=== PATIENT | male | born 1980 | race Hispanic/Latino ===

== ENCOUNTER 2024-06-05 15:24 | Inpatient (IN) | payer SELFPAY ==
[~2024-06-05 15:24] MED LIST: Iopamidol-370 76% 500 ML MDV (1 ML CHARGE) ONE
[2024-06-05] MEDS ORDERED: fentaNYL 50 mcg/mL 1 mL Vial ONE (15:30)
[2024-06-05] MEDS ORDERED: Rocuronium Bromide 10 MG/ML (10ML VIAL) ONE (15:32)
[2024-06-05] MEDS ORDERED: Dextrose 5% in Water 250 ML BAG (BBRAUN) ONE (15:32)
[2024-06-05] MEDS ORDERED: EPINEPHrine 1 MG/10 ML Abboject SYRINGE ONE (15:32)
[2024-06-05] MEDS ORDERED: Amiodarone 150 MG/3 ML VIAL ONE ×2 (15:32→16:25)
[2024-06-05] MEDS ORDERED: Amiodarone 450 MG/9 ML VIAL ONE (15:32)
[2024-06-05] MEDS ORDERED: Etomidate 40 MG (20 mL) VIAL ONE (15:32)
[2024-06-05 15:41] LABS: Hematocrit 41.4 % (42.0-52.0); Hemoglobin 14.4 g/dL (14.0-18.0); Mean Corpuscular HGB CONC 34.8 g/dL (32.0-36.0); Mean Corpuscular Hemoglobin 31.6 pg (27.0-31.0); Mean Corpuscular Volume 90.8 fL (78.0-98.0); Platelet Count 156 10x3/uL (130-400); RBC Distribution Width 11.9 % (11.5-14.5); Red Blood Cell (RBC) Count 4.56 mill/uL (4.70-6.10)
[2024-06-05] MEDS ORDERED: Fentanyl CADD 100 ML IV SCH (15:45)
[2024-06-05 15:47] LABS: Analyzer IN Cardio ER; Base Excess (BEa) -9.9 mEq/L (-2.0 to +3.0); CO2 Tension 35.3 mmHg (35.0-45.0); Calcium, Ionized (arterial) 1.11 mmol/L (1.12-1.30); Carboxyhemoglobin (COHb) 0.9 gm% (0.0-3.0); Hematocrit-ABG 43 % (42.0-52.0); Hemoglobin (Hb) 14.5 g/dL (14.0-18.0); O2 Tension (PaO2), arterial 136.8 mmHg (80.0-100.0); pH, Arterial 7.274 (7.35-7.45)
[2024-06-05 15:49] LABS: Potassium - ABG Lab 2.69 mmol/L (3.70-5.30); Puncture Site Right Radial artery
[2024-06-05 15:50] LABS: ALV-art Gradient 527.075 mmHg (0-20)
[2024-06-05 15:53] LABS: Acetaminophen Less than 10 mcg/mL (Less than 10); Alcohol Less than 10.0 mg/dL (Less than 10); Salicylate Less than 8.0 mg/dL (Less than 8.0)
[2024-06-05 15:56] LABS: INR-International Normal Ratio 1.1
[2024-06-05 15:59] LABS: Troponin I 0.152 ng/mL (< 0.028)
[2024-06-05 16:02] LABS: ALT (SGPT) 29 U/L (8-55); AST (SGOT) 41 U/L (5-34); Albumin 3.5 g/dL (3.5-5.0); Alkaline Phosphatase 89 U/L (40-110); Anion Gap 16 mmol/L (10-20); BUN (Urea Nitrogen) 16 mg/dL (8.9-20.6); Bilirubin, Total 0.4 mg/dL (0.2-1.2); Calc. Creatinine Clearance 0 mL/min (70-130); Calcium 8.2 mg/dL (7.8-10.44); Carbon Dioxide 17 mmol/L (22-29); Chloride 108 mmol/L (98-107); Estimated GFR 81; Globulin 2.7 g/dL (2.4-3.5); Glucose 207 mg/dL (70-105); Potassium 2.5 mmol/L (3.5-5.1); Protein, Total 6.2 g/dL (6.0-8.3); Sodium 138 mmol/L (136-145)
[2024-06-05 16:04] LABS: Amphetamine Not Detected (NotDetected); Barbiturates Screen Not Detected (NotDetected); Benzodiazepine Screen Not Detected (NotDetected); Cocaine Metabolite Screen Not Detected (NotDetected); Methadone Not Detected (NotDetected); Methamphetamine Not Detected (NotDetected); Opiate Screen Not Detected (NotDetected); Oxycodone Screen Not Detected (NotDetected); Phencyclidine (PCP) Not Detected (NotDetected); THC/Cannabinoid Screen Not Detected (NotDetected); Tricyclic Screen Not Detected (NotDetected)
[2024-06-05 16:17] LABS: Magnesium 1.9 mg/dL (1.6-2.6)
[2024-06-05 16:18] LABS: Band 6 % (5-11); Burr Cells SLIGHT = 2-5 cells HPF (0-1); Eosinophils 4 % (0-10); Lymphocytes 50 % (21-51); Metamyelocyte 3 % (0-0); Monocytes 3 % (0-10); Myelocyte 1 % (0-0); Neutrophil 24 % (42-75); Nucleated RBC (Manual Ct) 1 % (0); Ovalocytes SLIGHT = 2-5 cells HPF (0-1); Platelet Adequacy Comment Platelets Normal; Polychromasia SLIGHT = 2-3 cells HPF (0-2); Reactive Lymphocytes 10 % (0-10)
[2024-06-05] MEDS ORDERED: Magnesium 2 GM/50 ML BAG (IN WATER) ONE (16:29)
[2024-06-05] MEDS ORDERED: Propofol 1,000 MG/100 ML VIAL IV ONE (16:31)
[2024-06-05] MEDS ORDERED: NOREPINEPHRINE 8 MG/250 ML-D5W 250 ML ONE (16:54)
[2024-06-05] MEDS ORDERED: Electrolyte Replacement Protocol FS SCH (17:17)
[2024-06-05] MEDS ORDERED: DISCONTINUE PREVIOUS NARCOTIC PAIN MEDICATIONS AND BENZODIAZEPINES FS SCH (17:30)
[2024-06-05] MEDS ORDERED: Propofol BOLUS 1,000 MG/100 ML VIAL IV PRN (17:30)
[2024-06-05] MEDS ORDERED: NOREPINEPHRINE 8 MG/250 ML-D5W 250 ML IVPB SCH (17:30)
[2024-06-05] MEDS ORDERED: Fentanyl BOLUS 250 ML IVPB PRN (17:30)
[2024-06-05] MEDS ORDERED: Morphine 2 MG/ML VIAL SLOW IVP PRN (17:30)
[2024-06-05] MEDS ORDERED: Ipratropium/Albuterol 3 ML NEB NEB PRN (19:40)
[2024-06-05] MEDS ORDERED: Acetaminophen 325 MG (10.15 ML) UDCUP PO PRN (19:40)
[2024-06-05] MEDS ORDERED: Famotidine/PF 20 mg/2ml Vial SLOW IVP SCH (21:00)
[2024-06-05] MEDS ORDERED: Famotidine 40 MG/5 ML Oral Suspension PER TUBE SCH (21:00)
[2024-06-05] MEDS: Sodium Chloride 0.9% 1,000 ML IV SCH (21:09)
[2024-06-05] MEDS: Sodium Chloride 0.9% 500 ML IV SCH (21:15)
[2024-06-05] MEDS: Lorazepam 2 MG/ML VIAL SLOW IVP PRN (21:16)
[2024-06-05] MEDS: Potassium Chloride 40 MEQ in Premix 1 BAG IVPB SCH (21:56)
[2024-06-05] MEDS: Ventilator Sedation Protocol 1 EACH FS ONE (21:57)
[2024-06-05] MEDS ORDERED: Insulin Regular, Human 100 UNIT/ML 10 ML VIAL SC PRN ×2 (22:02→22:03)
[2024-06-05 22:15] LABS: Anion Gap 15 mmol/L (10-20); BUN (Urea Nitrogen) 17 mg/dL (8.9-20.6); Calc. Creatinine Clearance 0 mL/min (70-130); Carbon Dioxide 19 mmol/L (22-29); Chloride 108 mmol/L (98-107); Estimated GFR 68; Glucose 168 mg/dL (70-105); Potassium 3.7 mmol/L (3.5-5.1); Sodium 138 mmol/L (136-145)
[2024-06-05] MEDS: Folic Acid 1 MG TAB PER TUBE SCH (22:30)
[2024-06-05] MEDS: Thiamine HCl 200 MG/2 ML VIAL SLOW IVP SCH (22:30)
[2024-06-05] MEDS: Multivit, Therapeutic 1 TAB PER TUBE SCH (22:30)
[2024-06-05] MEDS: Potassium Chloride 20 MEQ in Premix 1 BAG IVPB SCH (22:48)
[2024-06-05] MEDS: Aspirin Chewable 81 MG TAB PER TUBE SCH (22:48)
[2024-06-05] MEDS: Potassium Bicarbonate/Cit Ac 20 MEQ TAB PER TUBE SCH (23:58)
[2024-06-06] MEDS: Fentanyl CADD 100 ML IV SCH (00:15)
[2024-06-06] MEDS: Amiodarone 450 MG in Dextrose 5% in Water 250 ML IVPB SCH (01:20)
[2024-06-06] MEDS: Propofol 1,000 MG/100 ML VIAL IV PRN (01:25)
[2024-06-06 02:24] LABS: Bacteria/HPF None Seen HPF (None Seen); Bilirubin Negative (Negative); Blood, Urine Trace (Negative); CAUTI Indications for Culture Dysuria,urgency,freq; Clarity Clear (Clear); Glucose, Urine (Dipstick) 150 mg/dL (Negative); Ketone, Urine Negative (Negative); Leukocyte Negative Leu/uL (Negative); Nitrite Negative (Negative); Protein, Urine (Dipstick) 200 mg/dL (Neg-Trace); RBC/HPF 0-3 HPF (0-3); Specific Gravity, Urine 1.007 (1.002-1.036); Squamous Epithelial None Seen HPF (0-3); Urobilinogen Normal mg/dL (Less than 2); pH, Urine 7.5 (5.0-9.0)
[2024-06-06 02:25] LABS: Urine Culture Reflex No No
[2024-06-06 04:01] LABS: #Basophils 0.07 10x3/uL (0.0-0.2); %Basophils 0.6 % (0.0-1.0); %Eosinophils 1.5 % (0.0-10.0); %Lymphocytes 16.8 % (21.0-51.0); %Monocytes 11.1 % (0.0-10.0); %Neutrophils 69.6 % (42.0-75.0); Mean Corpuscular Hemoglobin 31.5 pg (27.0-31.0); Mean Corpuscular Volume 90.1 fL (78.0-98.0); Mean Platelet Volume 10.2 fL (7.4-10.4); Platelet Count 153 10x3/uL (130-400); RBC Distribution Width 12.2 % (11.5-14.5); Red Blood Cell (RBC) Count 4.44 mill/uL (4.70-6.10)
[2024-06-06 04:25] LABS: Lactic Acid 1.51 mmol/L (0.5-2.2)
[2024-06-06 04:27] LABS: Hemoglobin A1c 6.5 % (4.0-6.0)
[2024-06-06 04:36] LABS: Troponin I 18.751 ng/mL (< 0.028)
[2024-06-06 05:01] LABS: ALT (SGPT) 33 U/L (8-55); AST (SGOT) 99 U/L (5-34); Albumin 3.1 g/dL (3.5-5.0); Alkaline Phosphatase 64 U/L (40-110); Anion Gap 12 mmol/L (10-20); BUN (Urea Nitrogen) 18 mg/dL (8.9-20.6); Bilirubin, Total 1.3 mg/dL (0.2-1.2); Calc. Creatinine Clearance 120 mL/min (70-130); Calcium 7.9 mg/dL (7.8-10.44); Carbon Dioxide 18 mmol/L (22-29); Chloride 110 mmol/L (98-107); Estimated GFR 88; Globulin 2.7 g/dL (2.4-3.5); Glucose 136 mg/dL (70-105); Protein, Total 5.8 g/dL (6.0-8.3); Sodium 136 mmol/L (136-145)
[2024-06-06 07:28] LABS: Actual Bicarbonate (HCO3a) 18.8 mEq/L (22-28); Base Excess (BEa) -4.3 mEq/L (-2.0 to +3.0); CO2 Tension 29.4 mmHg (35.0-45.0); Calcium, Ionized (arterial) 1.11 mmol/L (1.12-1.30); Carboxyhemoglobin (COHb) 0.8 gm% (0.0-3.0); Hematocrit-ABG 41 % (42.0-52.0); Hemoglobin (Hb) 14.1 g/dL (14.0-18.0); O2 Tension (PaO2), arterial 92.1 mmHg (80.0-100.0); Potassium - ABG Lab 3.83 mmol/L (3.70-5.30); pH, Arterial 7.423 (7.35-7.45)
[2024-06-06 07:34] LABS: Puncture Site Right Radial artery
[2024-06-06] MEDS: Enoxaparin 40 MG (0.4 mL) SYRINGE SC SCH (08:13)
[2024-06-06] MEDS ORDERED: DC Sedation Protocol FS SCH (08:13)
[2024-06-06] MEDS: Pantoprazole 40 MG VIAL IVP SCH (08:14)
[2024-06-06] MEDS: Potassium Phosphate 15 MMOL in Sodium Chloride 0.9% 100 ML IVPB SCH (08:50)
[2024-06-06] MEDS: Ampicillin/Sulbactam 3 GM in Sodium Chloride 0.9% 100 ML IVPB SCH ×2 (08:55→14:29)
[2024-06-06] MEDS: Multivit, Therapeutic 1 TAB PO SCH (21:44)
[2024-06-06] MEDS: Folic Acid 1 MG TAB PO SCH (21:44)
[2024-06-06] MEDS: Aspirin Chewable 81 MG TAB PO SCH (21:45)
[2024-06-06] MEDS: Nicotine 7 MG PATCH TD SCH (23:48)
[2024-06-07 04:35] LABS: #Basophils 0.03 10x3/uL (0.0-0.2); %Basophils 0.3 % (0.0-1.0); %Eosinophils 2.4 % (0.0-10.0); %Lymphocytes 11.7 % (21.0-51.0); %Monocytes 9.3 % (0.0-10.0); %Neutrophils 75.6 % (42.0-75.0); Hematocrit 37.1 % (42.0-52.0); Hemoglobin 12.6 g/dL (14.0-18.0); Mean Corpuscular Hemoglobin 31.7 pg (27.0-31.0); Mean Corpuscular Volume 93.2 fL (78.0-98.0); Mean Platelet Volume 10.1 fL (7.4-10.4); Platelet Count 94 10x3/uL (130-400); RBC Distribution Width 12.6 % (11.5-14.5); Red Blood Cell (RBC) Count 3.98 mill/uL (4.70-6.10)
[2024-06-07 04:46] LABS: ALT (SGPT) 30 U/L (8-55); AST (SGOT) 88 U/L (5-34); Albumin 3.1 g/dL (3.5-5.0); Alkaline Phosphatase 58 U/L (40-110); Anion Gap 11 mmol/L (10-20); BUN (Urea Nitrogen) 16 mg/dL (8.9-20.6); Bilirubin, Total 1.5 mg/dL (0.2-1.2); Calc. Creatinine Clearance 154 mL/min (70-130); Calcium 8.1 mg/dL (7.8-10.44); Carbon Dioxide 18 mmol/L (22-29); Chloride 110 mmol/L (98-107); Estimated GFR 111; Globulin 2.8 g/dL (2.4-3.5); Glucose 104 mg/dL (70-105); Magnesium 1.5 mg/dL (1.6-2.6); Potassium 3.6 mmol/L (3.5-5.1); Protein, Total 5.9 g/dL (6.0-8.3); Sodium 135 mmol/L (136-145)
[2024-06-07] MEDS: Magnesium 2 GM/50 ML(in water) 2 GM in Premix 1 BAG IVPB SCH (07:23)
[2024-06-07] MEDS: PHOS-NAK 1 PKT PACK PO SCH ×2 (07:23→16:04)
[2024-06-07 07:44] VITALS: BMI 34.3
[2024-06-07] MEDS: Acetaminophen 325 MG TAB PO PRN (08:32)
[2024-06-07] MEDS ORDERED: Communication Order-Pharmacy CATH FS PRN (12:15)
[2024-06-07] MEDS ORDERED: Iopamidol-370 76% 500 ML MDV (1 ML CHARGE) ONE (12:51)
[2024-06-07] MEDS: Morphine 4 MG/ML VIAL SLOW IVP SCH ×2 (16:07→23:30)
[2024-06-07] MEDS: Thiamine 100 MG TAB PO SCH (20:32)
[2024-06-07] MEDS: Morphine 2 MG/ML VIAL SLOW IVP PRN (20:33)
[2024-06-08 05:20] LABS: ALT (SGPT) 30 U/L (8-55); AST (SGOT) 70 U/L (5-34); Albumin 3.4 g/dL (3.5-5.0); Alkaline Phosphatase 70 U/L (40-110); Anion Gap 14 mmol/L (10-20); BUN (Urea Nitrogen) 14 mg/dL (8.9-20.6); Bilirubin, Total 1.3 mg/dL (0.2-1.2); Calc. Creatinine Clearance 138 mL/min (70-130); Calcium 8.8 mg/dL (7.8-10.44); Carbon Dioxide 21 mmol/L (22-29); Chloride 107 mmol/L (98-107); Estimated GFR 104; Globulin 3.6 g/dL (2.4-3.5); Glucose 119 mg/dL (70-105); Magnesium 1.6 mg/dL (1.6-2.6); Phosphorus 2.4 mg/dL (2.3-4.7); Potassium 3.7 mmol/L (3.5-5.1); Sodium 138 mmol/L (136-145)
[2024-06-08] MEDS ORDERED: Verapamil 5 MG/2 ML VIAL ONE (09:38)
[2024-06-08] MEDS ORDERED: Nitroglycerin 50 MG/250 ML BOT 250 ML ONE (09:39)
[2024-06-08] MEDS ORDERED: Heparin 10,000 UNITS/ 10 ML VIAL ONE (09:39)
[2024-06-08] MEDS ORDERED: Midazolam HCl 2 mg/2 ml Vial ONE (09:39)
[2024-06-08] MEDS ORDERED: fentaNYL 50 mcg/mL 1 mL Vial ONE (10:15)
[2024-06-08] MEDS ORDERED: Nitroglycerin 0.4 MG TAB (25 Tab Bottle) SL PRN (11:42)
[2024-06-08] MEDS ORDERED: Sodium Chloride 0.9% 200 ML IV PRN (11:42)
[2024-06-08] MEDS: Magnesium 2 GM/50 ML(in water) 2 GM in Premix 1 BAG IVPB SCH (11:50)
[2024-06-08] MEDS: Pantoprazole DR 40 MG TAB PO SCH (11:51)
[2024-06-08] MEDS: Enoxaparin 40 MG (0.4 mL) SYRINGE SC SCH (13:00)
[2024-06-08] MEDS ORDERED: Iopamidol 370 76% 100 ML VIAL ONE (13:04)
[2024-06-08] MEDS: Acetaminophen/Codeine 30-300mg Tablet PO PRN (20:07)
[2024-06-08] MEDS: Amoxicillin/Potassium Clav 875 MG TAB PO SCH (20:08)
[2024-06-09 04:53] LABS: Phosphorus 3.3 mg/dL (2.3-4.7)
[2024-06-09 04:58] LABS: ALT (SGPT) 25 U/L (8-55); AST (SGOT) 42 U/L (5-34); Albumin 3.1 g/dL (3.5-5.0); Alkaline Phosphatase 66 U/L (40-110); Anion Gap 12 mmol/L (10-20); BUN (Urea Nitrogen) 11 mg/dL (8.9-20.6); Bilirubin, Total 1.2 mg/dL (0.2-1.2); Calc. Creatinine Clearance 159 mL/min (70-130); Calcium 8.8 mg/dL (7.8-10.44); Carbon Dioxide 22 mmol/L (22-29); Chloride 107 mmol/L (98-107); Estimated GFR 112; Globulin 3.5 g/dL (2.4-3.5); Glucose 120 mg/dL (70-105); Magnesium 1.6 mg/dL (1.6-2.6); Protein, Total 6.6 g/dL (6.0-8.3); Sodium 137 mmol/L (136-145)
[2024-06-09 09:01] LABS: #Basophils 0.05 10x3/uL (0.0-0.2); %Basophils 0.7 % (0.0-1.0); %Lymphocytes 16.4 % (21.0-51.0); %Monocytes 12.8 % (0.0-10.0); %Neutrophils 65.7 % (42.0-75.0); Mean Corpuscular HGB CONC 34.2 g/dL (32.0-36.0); Mean Corpuscular Hemoglobin 31.4 pg (27.0-31.0); Mean Corpuscular Volume 91.8 fL (78.0-98.0); Mean Platelet Volume 10.1 fL (7.4-10.4); Platelet Count 134 10x3/uL (130-400); RBC Distribution Width 12.2 % (11.5-14.5); Red Blood Cell (RBC) Count 4.14 mill/uL (4.70-6.10)
[2024-06-09] MEDS: Magnesium 2 GM/50 ML(in water) 2 GM in Premix 1 BAG IVPB SCH (10:03)
[2024-06-09] MEDS ORDERED: Magnevist 469MG/ML 20 ML VIAL ONE (13:56)
[2024-06-09] MEDS: Atorvastatin Calcium 40 MG TAB PO SCH (20:59)
[2024-06-09] MEDS: Carvedilol 3.125 MG TAB PO SCH (21:00)
[2024-06-10 05:10] LABS: Cardiac Risk 4.6 (Less than 4.5); Cholesterol 120 mg/dl (< 200 Desired); HDL Cholesterol 26 mg/dL (>60 Neg Risk); LDL Cholesterol, Calculated 78 mg/dL; Triglycerides 82 mg/dL (Less than 150)
[2024-06-10 05:12] LABS: Magnesium 1.5 mg/dL (1.6-2.6)
[2024-06-10] MEDS ORDERED: Isosorbide Mononitrate 60 MG ER.TAB PO SCH (09:00)
[2024-06-10] MEDS: Isosorbide Mononitrate 30 MG ER.TAB PO SCH (09:23)
[2024-06-10] MEDS: Magnesium 2 GM/50 ML(in water) 2 GM in Premix 1 BAG IVPB SCH (09:24)
[2024-06-10] MEDS: Acetaminophen/Codeine 30-300mg Tablet PO PRN (09:38)
[2024-06-10 15:39] LABS: Anion Gap 14 mmol/L (10-20); BUN (Urea Nitrogen) 14 mg/dL (8.9-20.6); Calc. Creatinine Clearance 140 mL/min (70-130); Calcium 8.8 mg/dL (7.8-10.44); Carbon Dioxide 19 mmol/L (22-29); Chloride 106 mmol/L (98-107); Estimated GFR 105; Glucose 222 mg/dL (70-105); Potassium 3.7 mmol/L (3.5-5.1); Sodium 135 mmol/L (136-145)
[2024-06-11] MEDS: Communication Order-Pharmacy FS SCH (04:39)
[2024-06-11 05:30] LABS: #Basophils 0.04 10x3/uL (0.0-0.2); %Basophils 0.7 % (0.0-1.0); %Eosinophils 6.5 % (0.0-10.0); %Lymphocytes 31.6 % (21.0-51.0); %Monocytes 13.8 % (0.0-10.0); %Neutrophils 46.7 % (42.0-75.0); Hematocrit 33.3 % (42.0-52.0); Hemoglobin 11.6 g/dL (14.0-18.0); Mean Corpuscular HGB CONC 34.8 g/dL (32.0-36.0); Mean Corpuscular Hemoglobin 31.9 pg (27.0-31.0); Mean Corpuscular Volume 91.5 fL (78.0-98.0); Mean Platelet Volume 10.1 fL (7.4-10.4); Platelet Count 131 10x3/uL (130-400); Red Blood Cell (RBC) Count 3.64 mill/uL (4.70-6.10)
[2024-06-11 05:48] LABS: Anion Gap 13 mmol/L (10-20); BUN (Urea Nitrogen) 16 mg/dL (8.9-20.6); Calc. Creatinine Clearance 144 mL/min (70-130); Calcium 8.6 mg/dL (7.8-10.44); Carbon Dioxide 23 mmol/L (22-29); Chloride 105 mmol/L (98-107); Estimated GFR 109; Glucose 106 mg/dL (70-105); Magnesium 1.5 mg/dL (1.6-2.6); Phosphorus 3.6 mg/dL (2.3-4.7); Potassium 3.9 mmol/L (3.5-5.1); Sodium 137 mmol/L (136-145)
[2024-06-11] MEDS ORDERED: Albumin 5% 500 ML ONE (06:24)
[2024-06-11] MEDS ORDERED: Bupivacaine PF 0.5% 30 ML VIAL ONE (06:24)
[2024-06-11] MEDS ORDERED: PHENYLEPHRINE-NS 100 MCG/ML 10 ML SYRINGE ONE (06:24)
[2024-06-11] MEDS ORDERED: EPINEPHrine 1 MG/ML VIAL ONE (06:24)
[2024-06-11] MEDS ORDERED: PROPOFOL 20 ML ONE (06:28)
[2024-06-11] MEDS ORDERED: Vecuronium 10 MG VIAL ONE ×2 (06:28→06:32)
[2024-06-11] MEDS ORDERED: Rocuronium Bromide 10 MG/ML (10ML VIAL) ONE ×2 (06:28→06:32)
[2024-06-11] MEDS ORDERED: Midazolam HCl 2 mg/2 ml Vial ONE ×3 (06:29→10:15)
[2024-06-11] MEDS ORDERED: Fentanyl 250 MCG/5 ML VIAL ONE (06:29)
[2024-06-11] MEDS ORDERED: Etomidate 40 MG (20 mL) VIAL ONE (06:30)
[2024-06-11] MEDS ORDERED: Aminocaproic Acid 5 GM/20 ML VIAL ONE ×2 (06:32→08:31)
[2024-06-11] MEDS ORDERED: Heparin 10,000 UNITS/1 ML VIAL 30,000 UNITS in Sodium Chloride 0.9% 1,000 ML FS SCH (06:45)
[2024-06-11] MEDS ORDERED: Dexamethasone 4 mg/ml Vial ONE (06:52)
[2024-06-11] MEDS ORDERED: CEFAZOLIN 2 GM in Sodium Chloride 0.9% 100 ML IVPB SCH (07:00)
[2024-06-11] MEDS ORDERED: Papaverine 60 MG/2 ML VIAL ONE ×2 (07:02→08:31)
[2024-06-11] MEDS ORDERED: Ondansetron ODT 4 MG TAB ONE (07:06)
[2024-06-11] MEDS ORDERED: CEFAZOLIN 2 GM VIAL ONE (07:18)
[2024-06-11] MEDS ORDERED: Heparin 5,000 UNITS/ML VIAL ONE (08:31)
[2024-06-11] MEDS ORDERED: Calcium Chloride 1 GM/10 ML Abboject SYRINGE ONE ×2 (08:31→11:00)
[2024-06-11] MEDS ORDERED: Protamine Sulfate 250 MG/25 ML VIAL ONE (08:31)
[2024-06-11] MEDS ORDERED: Lidocaine 2% PF 100 mg/5 ml Syringe ONE (08:31)
[2024-06-11] MEDS ORDERED: Magnesium 5 GM/10 ML VIAL ONE (08:31)
[2024-06-11] MEDS ORDERED: Mannitol 12.5 GM/50 ML ONE (08:31)
[2024-06-11] MEDS ORDERED: Esmolol 100 MG/10 ML VIAL ONE (08:31)
[2024-06-11] MEDS ORDERED: Sodium Bicarb 50 mEq/50 ML VIAL ONE (08:31)
[2024-06-11] MEDS ORDERED: Vancomycin 1 GM VIAL ONE (08:31)
[2024-06-11] MEDS ORDERED: Thrombin 5000 UNITS/5 ML VIAL ONE (08:31)
[2024-06-11] MEDS ORDERED: Cardioplegic Soln 1,000 ML BAG ONE (08:31)
[2024-06-11] MEDS ORDERED: Heparin 30,000 units/30 ml VIAL ONE (08:31)
[2024-06-11] MEDS ORDERED: Potassium Chloride 60 mEq (30 mL) VIAL ONE (08:31)
[2024-06-11] MEDS ORDERED: CEFAZOLIN 1 GM VIAL ONE (08:32)
[2024-06-11] MEDS ORDERED: Vasopressin 20 UNITS/ML VIAL ONE (10:10)
[2024-06-11] MEDS ORDERED: fentaNYL PF 100 MCG/2 ML SYRINGE ONE (10:18)
[2024-06-11] MEDS ORDERED: Heparin 10,000 UNITS/ 10 ML VIAL ONE (10:35)
[2024-06-11] MEDS: Magnesium 2 GM/50 ML(in water) 2 GM in Premix 1 BAG IVPB SCH ×2 (11:40→13:10)
[2024-06-11] MEDS: Lidocaine 4% Patch TD SCH (11:41)
[2024-06-11] MEDS: FLU (Fluarix Triv) TS24-25(6MOS UP)/PF 45 MCG/0.5 ML Syringe IM ONE (11:41)
[2024-06-11] MEDS ORDERED: Morphine 2 MG/ML VIAL SLOW IVP PRN (12:34)
[2024-06-11] MEDS ORDERED: Ipratropium/Albuterol 3 ML NEB NEB PRN (12:34)
[2024-06-11] MEDS ORDERED: Acetaminophen 325 MG TAB PO PRN (12:34)
[2024-06-11] MEDS ORDERED: hydrALAZINE 20 MG/ML VIAL SLOW IVP PRN (12:34)
[2024-06-11] MEDS ORDERED: Bisacodyl 10 MG SUPP PR PRN (12:34)
[2024-06-11] MEDS ORDERED: fentaNYL 50 mcg/mL 1 mL Vial SLOW IVP PRN ×2 (12:34)
[2024-06-11] MEDS ORDERED: Guaifenesin DM 100-10/5 ML UDCUP PO PRN (12:34)
[2024-06-11] MEDS ORDERED: Promethazine HCl 25 MG/ML VIAL IM PRN (12:34)
[2024-06-11] MEDS ORDERED: Bisacodyl 5 MG TAB PO PRN (12:34)
[2024-06-11] MEDS ORDERED: Mag-Al 1200 mg/1200 mg/30 ML UDCUP PO PRN (12:34)
[2024-06-11 12:43] LABS: #Basophils 0.08 10x3/uL (0.0-0.2); %Basophils 0.5 % (0.0-1.0); %Eosinophils 1.5 % (0.0-10.0); %Monocytes 9.3 % (0.0-10.0); %Neutrophils 78.1 % (42.0-75.0); Hematocrit 31.1 % (42.0-52.0); Hemoglobin 10.5 g/dL (14.0-18.0); Mean Corpuscular HGB CONC 33.8 g/dL (32.0-36.0); Mean Corpuscular Hemoglobin 31.3 pg (27.0-31.0); Mean Corpuscular Volume 92.8 fL (78.0-98.0); Mean Platelet Volume 10.4 fL (7.4-10.4); Platelet Count 141 10x3/uL (130-400); RBC Distribution Width 12.3 % (11.5-14.5); Red Blood Cell (RBC) Count 3.35 mill/uL (4.70-6.10)
[2024-06-11] MEDS: hydrALAZINE 20 MG/ML VIAL ONE (12:45)
[2024-06-11 12:51] LABS: Actual Bicarbonate (HCO3a) 19.1 mEq/L (22-28); Base Excess (BEa) -5.6 mEq/L (-2.0 to +3.0); CO2 Tension 34.8 mmHg (35.0-45.0); Calcium, Ionized (arterial) 1.17 mmol/L (1.12-1.30); Carboxyhemoglobin (COHb) 0.4 gm% (0.0-3.0); Hematocrit-ABG 35 % (42.0-52.0); O2 Tension (PaO2), arterial 102.6 mmHg (80.0-100.0); Potassium - ABG Lab 4.09 mmol/L (3.70-5.30); pH, Arterial 7.358 (7.35-7.45)
[2024-06-11 12:53] LABS: Puncture Site ALINE
[2024-06-11 13:03] LABS: INR-International Normal Ratio 1.2
[2024-06-11 13:04] LABS: PTT 31.7 sec (22.9-36.1)
[2024-06-11] MEDS: Morphine 4 MG/ML VIAL ONE (13:08)
[2024-06-11] MEDS: Ketorolac Tromethamine 30 MG (1 mL) VIAL IVP SCH ×2 (13:09→18:19)
[2024-06-11] MEDS: Ondansetron PF 4 MG/2 ML Vial IVP PRN (13:09)
[2024-06-11] MEDS: Albumin 5% 12.5 GM (250 mL) BOT IVPB PRN ×2 (13:10→21:55)
[2024-06-11] MEDS: Insulin Regular, Human 100 UNIT/ML 10 ML VIAL SC PRN (13:10)
[2024-06-11] MEDS: Sodium Chloride 0.9% 1,000 ML IV SCH (13:12)
[2024-06-11] MEDS ORDERED: Glucagon 1 MG/ML KIT SC PRN (13:15)
[2024-06-11] MEDS ORDERED: Dextrose 50% Abboject 50 ML SYRINGE SLOW IVP PRN (13:15)
[2024-06-11] MEDS ORDERED: Dextrose 5% in Water 1,000 ML IV PRN (13:15)
[2024-06-11] MEDS ORDERED: INSULIN REGULAR IN 0.9 % NACL 100 UNITS in Premix 1 BAG IVPB SCH (13:15)
[2024-06-11] MEDS ORDERED: Insulin Reg, Human 100 UNITS in Sodium Chloride 0.9% 100 ML IVPB SCH (13:15)
[2024-06-11 13:20] LABS: Anion Gap 12 mmol/L (10-20); BUN (Urea Nitrogen) 15 mg/dL (8.9-20.6); Calc. Creatinine Clearance 163 mL/min (70-130); Calcium 8.5 mg/dL (7.8-10.44); Carbon Dioxide 19 mmol/L (22-29); Chloride 111 mmol/L (98-107); Estimated GFR 113; Glucose 142 mg/dL (70-105); Potassium 4.3 mmol/L (3.5-5.1); Sodium 138 mmol/L (136-145)
[2024-06-11] MEDS: Nitroglycerin 50 MG/250 ML BOT 0 ML ONE (13:45)
[2024-06-11] MEDS: Post-Op Insulin Drip Protocol IVPB ONE (13:46)
[2024-06-11] MEDS: CEFAZOLIN 2 GM in Sodium Chloride 0.9% 100 ML IVPB SCH (16:14)
[2024-06-11] MEDS: Aspirin Chewable 81 MG TAB PO SCH (16:14)
[2024-06-11 17:50] LABS: Hematocrit 28.7 % (42.0-52.0); Hemoglobin 9.9 g/dL (14.0-18.0)
[2024-06-11] MEDS: Atorvastatin Calcium 40 MG TAB PO SCH (20:30)
[2024-06-11] MEDS: Famotidine/PF 20 mg/2ml Vial SLOW IVP SCH (20:30)
[2024-06-11] MEDS ORDERED: Transdermal Patch Removal TOP SCH (21:00)
[2024-06-12 04:49] LABS: #Basophils Less than 0.03 10x3/uL (0.0-0.2); #Eosinophils Less than 0.03 10x3/uL (0.0-0.7); %Basophils 0.1 % (0.0-1.0); %Lymphocytes 5.4 % (21.0-51.0); %Monocytes 9.5 % (0.0-10.0); %Neutrophils 84.4 % (42.0-75.0); Hemoglobin 8.1 g/dL (14.0-18.0); Mean Corpuscular HGB CONC 33.8 g/dL (32.0-36.0); Mean Corpuscular Hemoglobin 31.6 pg (27.0-31.0); Mean Corpuscular Volume 93.8 fL (78.0-98.0); Mean Platelet Volume 10.6 fL (7.4-10.4); Platelet Count 106 10x3/uL (130-400); RBC Distribution Width 12.4 % (11.5-14.5); Red Blood Cell (RBC) Count 2.56 mill/uL (4.70-6.10)
[2024-06-12 05:13] LABS: Anion Gap 14 mmol/L (10-20); BUN (Urea Nitrogen) 19 mg/dL (8.9-20.6); Calc. Creatinine Clearance 149 mL/min (70-130); Carbon Dioxide 19 mmol/L (22-29); Chloride 111 mmol/L (98-107); Estimated GFR 109; Glucose 123 mg/dL (70-105); Phosphorus 3.9 mg/dL (2.3-4.7); Potassium 3.9 mmol/L (3.5-5.1); Sodium 140 mmol/L (136-145)
[2024-06-12] MEDS: HYDROcodone/Acetaminophen 5/325 mg Tablet PO PRN (05:28)
[2024-06-12] MEDS: Aspirin 325 MG TAB PO SCH (08:37)
[2024-06-12] MEDS: Potassium Chloride 20 MEQ (100 mL) BAG IVPB PRN (08:38)
[2024-06-12] MEDS ORDERED: NOREPINEPHRINE 8 MG/250 ML-D5W 250 ML IVPB PRN (09:00)
[2024-06-12] MEDS ORDERED: Insulin Glargine 30 UNITS/0.3 ML VIAL SC PRN (13:01)
[2024-06-12] MEDS: Albumin 5% 12.5 GM (250 mL) BOT IVPB SCH (14:39)
[2024-06-12] MEDS: Amoxicillin/Potassium Clav 875 MG TAB PO SCH (21:25)
[2024-06-13 06:01] LABS: #Basophils 0.04 10x3/uL (0.0-0.2); %Basophils 0.4 % (0.0-1.0); %Lymphocytes 17.8 % (21.0-51.0); %Monocytes 13.7 % (0.0-10.0); %Neutrophils 66.5 % (42.0-75.0); Hematocrit 23.9 % (42.0-52.0); Hemoglobin 7.9 g/dL (14.0-18.0); Mean Corpuscular HGB CONC 33.1 g/dL (32.0-36.0); Mean Corpuscular Hemoglobin 31.9 pg (27.0-31.0); Mean Corpuscular Volume 96.4 fL (78.0-98.0); Mean Platelet Volume 10.8 fL (7.4-10.4); Platelet Count 118 10x3/uL (130-400); RBC Distribution Width 12.6 % (11.5-14.5); Red Blood Cell (RBC) Count 2.48 mill/uL (4.70-6.10)
[2024-06-13 06:32] LABS: Anion Gap 12 mmol/L (10-20); BUN (Urea Nitrogen) 36 mg/dL (8.9-20.6); Calc. Creatinine Clearance 117 mL/min (70-130); Calcium 7.8 mg/dL (7.8-10.44); Carbon Dioxide 18 mmol/L (22-29); Chloride 110 mmol/L (98-107); Estimated GFR 80; Glucose 128 mg/dL (70-105); Magnesium 1.9 mg/dL (1.6-2.6); Phosphorus 2.7 mg/dL (2.3-4.7); Potassium 4.1 mmol/L (3.5-5.1); Sodium 136 mmol/L (136-145)
[2024-06-13] MEDS: Pantoprazole DR 40 MG TAB PO SCH (09:34)
[2024-06-13 15:46] VITALS: BMI 36.3
[2024-06-14 08:48] LABS: Anion Gap 12 mmol/L (10-20); BUN (Urea Nitrogen) 29 mg/dL (8.9-20.6); Calc. Creatinine Clearance 167 mL/min (70-130); Calcium 8.3 mg/dL (7.8-10.44); Carbon Dioxide 18 mmol/L (22-29); Chloride 112 mmol/L (98-107); Estimated GFR 112; Glucose 132 mg/dL (70-105); Magnesium 1.7 mg/dL (1.6-2.6); Potassium 3.9 mmol/L (3.5-5.1); Sodium 138 mmol/L (136-145)
[2024-06-14] MEDS: Metoprolol Tartrate 25 MG TAB PO SCH (09:46)
[2024-06-14] MEDS: Furosemide 20 MG (2 mL) VIAL SLOW IVP SCH (11:53)
[2024-06-15 05:49] LABS: Anion Gap 13 mmol/L (10-20); BUN (Urea Nitrogen) 28 mg/dL (8.9-20.6); Calc. Creatinine Clearance 141 mL/min (70-130); Calcium 8.3 mg/dL (7.8-10.44); Carbon Dioxide 19 mmol/L (22-29); Chloride 111 mmol/L (98-107); Estimated GFR 100; Glucose 122 mg/dL (70-105); Magnesium 1.6 mg/dL (1.6-2.6); Sodium 139 mmol/L (136-145)
[2024-06-15] MEDS: Furosemide 20 MG TAB PO SCH (08:07)
[2024-06-15] MEDS: Magnesium 2 GM/50 ML(in water) 4 GM in Premix 1 BAG IVPB SCH (10:10)
[2024-06-15] MEDS: Magnesium Oxide 400 MG TAB PO SCH (10:10)
[2024-06-16] MEDS: HYDROcodone/Acetaminophen 5/325 mg Tablet PO PRN (00:20)
[2024-06-16 05:09] LABS: Anion Gap 13 mmol/L (10-20); BUN (Urea Nitrogen) 26 mg/dL (8.9-20.6); Calc. Creatinine Clearance 118 mL/min (70-130); Calcium 8.6 mg/dL (7.8-10.44); Carbon Dioxide 20 mmol/L (22-29); Chloride 109 mmol/L (98-107); Estimated GFR 81; Glucose 129 mg/dL (70-105); Magnesium 1.7 mg/dL (1.6-2.6); Potassium 4.8 mmol/L (3.5-5.1); Sodium 137 mmol/L (136-145)
[2024-06-16 13:07] VITALS: BP 131/58; TEMP 98.4
== END 2024-06-16 13:50 | disposition home or self-care (01) | DRG 233 ==
LOC: EDBD 15:24 → ERS 15:24 → CCU 16:04 → 2NO 06-07 11:07 → CCU 06-11 07:07 → IMCU/EMU 06-12 22:50 → 2NO 06-13 20:57
PROVIDERS: ADMIT Internal Medicine; ATTEND Internal Medicine
PROC: 4A023N8 Measurement of Cardiac Sampling and Pressure, Bilateral, Percutaneous Approach (ICD-10-PCS; 2024-06-08)
PROC: B211YZZ Fluoroscopy of Multiple Coronary Arteries using Other Contrast (ICD-10-PCS; 2024-06-08)
PROC: 02100Z9 Bypass Coronary Artery, One Artery from Left Internal Mammary, Open Approach (ICD-10-PCS; principal; 2024-06-11)
PROC: 021009W Bypass Coronary Artery, One Artery from Aorta with Autologous Venous Tissue, Open Approach (ICD-10-PCS; 2024-06-11)
PROC: 02100AW Bypass Coronary Artery, One Artery from Aorta with Autologous Arterial Tissue, Open Approach (ICD-10-PCS; 2024-06-11)
PROC: 03BC4ZZ Excision of Left Radial Artery, Percutaneous Endoscopic Approach (ICD-10-PCS; 2024-06-11)
PROC: 06BQ4ZZ Excision of Left Saphenous Vein, Percutaneous Endoscopic Approach (ICD-10-PCS; 2024-06-11)
PROC: 5A1221Z Performance of Cardiac Output, Continuous (ICD-10-PCS; 2024-06-11)
PROC: 02L70CK Occlusion of Left Atrial Appendage with Extraluminal Device, Open Approach (ICD-10-PCS; 2024-06-11)
DX: I25.110 Atherosclerotic heart disease of native coronary artery with unstable angina pectoris (principal); I21.A1 Myocardial infarction type 2; I46.2 Cardiac arrest due to underlying cardiac condition; I49.01 Ventricular fibrillation; J96.01 Acute respiratory failure with hypoxia; J69.0 Pneumonitis due to inhalation of food and vomit; I63.139 Cerebral infarction due to embolism of unspecified carotid artery; E87.1 Hypo-osmolality and hyponatremia; F10.20 Alcohol dependence, uncomplicated; E87.6 Hypokalemia; I95.9 Hypotension, unspecified; R94.31 Abnormal electrocardiogram [ECG] [EKG]; E11.9 Type 2 diabetes mellitus without complications; Z79.891 Long term (current) use of opiate analgesic; Z79.890 Hormone replacement therapy; Z79.899 Other long term (current) drug therapy; Z79.84 Long term (current) use of oral hypoglycemic drugs
CPT/HCPCS: 31500; 36415; 36416; 36430; 36556; 36600; 51702; 70450; 70553; 71045; 71275; 74177; 76376; 80048; 80053; 80061; 80306; 80307; 81001; 82805; 83036; 83605; 83735; 83880; 84100; 84443; 84484; 85025; 85610; 85730; 86850; 86900; 86901; 92950; 93005; 93010; 93306; 93458; 93798; 93880; 94002; 94003; 94150; 94760; 96365; 96366; 96367; 96368; 96375; 97139; 99152; 99153; 99292; A4311; A4648; C1751; C1769; C1887; C1894; J0171; J0282; J0295; J0360; J0665; J0690; J1100; J1642; J1644; J1650; J1815; J1885; J1940; J2003; J2060; J2150; J2250; J2272; J2405; J2440; J2470; J2704; J2720; J3010; J3370; J3411; J3475; J3480; J3490; J7030; J7070; P9045; Q0162; Q9967; S0017